=== PATIENT | female | born 1950 | race Caucasian/White ===

== ENCOUNTER 2017-05-17 23:20 | Emergency (ER) | payer MEDICARE, OTHER ==
[~2017-05-17] VITALS: Ht 157.5 cm; Wt 93.2 kg
[2017-05-17] MEDS ORDERED: GLUCOPHAGE PO (23:31)
[2017-05-17] MEDS ORDERED: GLUCOTROL 5M5 MG/TAB PO (23:31)
[2017-05-17] MEDS ORDERED: TRADJENTA5 MG PO (23:31)
[2017-05-18 00:47] VITALS: BP 147/67
== END 2017-05-18 00:42 | disposition home or self-care (01) ==
LOC: ED 23:20
DX: L50.9 Urticaria, unspecified (principal); E11.9 Type 2 diabetes mellitus without complications; Z79.84 Long term (current) use of oral hypoglycemic drugs

== ENCOUNTER → 2019-10-22 | Outpatient (CLI) | payer MEDICARE, OTHER ==
[2019-07-12 18:39] VITALS: BP 171/80
[~2019-10-22] MED LIST: GLUCOTROL 5M5 MG/TAB PO; METFORMIN HYD1000 MG PO; TRADJENTA5 MG PO
== END ==
LOC: RAD 07:52
DX: Z87.442 Personal history of urinary calculi (principal)